=== PATIENT | male | born 1960 | race Caucasian/White ===

== ENCOUNTER → 2016-08-01 | Outpatient (CLI) | payer BC ==
--- NOTE | 2016-08-01 08:49 | DIAGNOSTIC IMAGING REPORT ---
RIGHT HIP UNILATERAL 2 VIEWS CLINICAL HISTORY: Right hip pain COMPARISON: None. DISCUSSION: No fractures or dislocations are visualized. The joint space appears well-preserved for age. There are no erosive or destructive changes. IMPRESSION: Normal conventional radiographic evaluation of the right hip for age Electronically signed by: Zaki Bailey M.D. 08/01/2016 8:48 AM Dictated Date/Time: 08/01/2016 8:47 AM
--- NOTE | 2016-08-01 08:50 | DIAGNOSTIC IMAGING REPORT ---
LEFT HIP UNILATERAL 2 VIEWS CLINICAL HISTORY: Left hip pain COMPARISON: None. DISCUSSION: No fractures or dislocations are visualized. There are no erosive or destructive changes. Joint space appears well-preserved for age. IMPRESSION: Normal conventional radiographic evaluation of the left hip for age Electronically signed by: Zaki Bailey M.D. 08/01/2016 8:49 AM Dictated Date/Time: 08/01/2016 8:48 AM
== END | disposition home or self-care (01) ==
LOC: C.RAD1850 08:04
DX: M25.551 Pain in right hip (principal); M25.552 Pain in left hip

== ENCOUNTER → 2016-09-02 | Outpatient (CLI) | payer BC ==
--- NOTE | 2016-09-02 14:33 | DIAGNOSTIC IMAGING REPORT ---
FLUOROSCOPICALLY GUIDED LEFT HIP ANESTHETIC AND STEROID INJECTION CLINICAL HISTORY: Left hip pain. Arthritis. COMPARISON STUDY: Conventional radiographic study dated 08/01/2016 FLUOROSCOPY TIME: 18 seconds. A single fluoroscopic spot image was acquired.. FINDINGS: A timeout was performed. The risks of the procedure were explained the patient informed consent was obtained. Patient was prepped and draped in sterile fashion. Skin was anesthetized with 1% lidocaine. Under fluoroscopic guidance, 20-gauge spinal needle was introduced into the joint capsule left hip. Intra-articular location was documented with injection of water-soluble contrast. 2 cc of betamethasone, and 5 cc of 0.5% bupivacaine were instilled into the joint space. IMPRESSION: Successful fluoroscopically guided left hip anesthetic and steroid injection. Electronically signed by: Zaki Bailey M.D. 09/02/2016 2:31 PM Dictated Date/Time: 09/02/2016 2:30 PM
== END | disposition home or self-care (01) ==
LOC: C.RADBC 13:48
PROVIDERS: ATTEND Orthopaedic Surgery
DX: M16.12 Unilateral primary osteoarthritis, left hip (principal)